=== PATIENT | female | born 1950 | race Caucasian/White ===

== ENCOUNTER → 2018-12-19 08:00 | Outpatient (CLI) | payer MEDICARE | END | disposition home or self-care (01) | LOC: D.HCCARDIO 08:00 | PROVIDERS: ATTEND Internal Medicine Cardiovascular Disease | DX: I20.9 Angina pectoris, unspecified (principal) ==

== ENCOUNTER 2018-12-27 11:26 | Outpatient (CLI) | payer MEDICARE ==
[~2018-12-27] VITALS: Ht 160 cm; Wt 63.6 kg
--- NOTE | ~2018-12-27 | HEMODYNAMI ---
PATIENT:VIC EAGLE MEDICAL RECORD: [id number] : 50 LOCATION:[facility] ADMISSION DATE: 12/27/18 Generatedon:12/27/201814:45 Patient name: VIC EAGLE Patient #: [id number] SSN: : 1950 Date of study: 12/27/2018 Page: Of Hemodynamic Procedure Report Patient Data Patient Demographics Procedure consent was obtained First Name: VIC Gender: Female Last Name: FCO : 1950 Patient #: [id number] Age: 68 year(s) Race: Unknown Additional ID: [id number] Contact details [address]: [address] [place] [address] State: [place] City: [place] Zip code: [address] Past Medical History Allergies Allergen Reaction Date Comments Reported Morphine 12/27/2018 Adhesive tape 12/27/2018 Admission Admission Data Admission Date: 12/27/2018 Admission Time: 11:26 Admit Source: Other Lab Results Lab Result Date: 12/27/2018 Lab Result Time: 0:00 Biochemistry Name Units Result Min Max BUN mg/dl 10 --(-*--)-- 7 18 Creatinine mg/dl 0.7 --(*---)-- 0.6 1.3 eGFR ml/min 90 --(*---)-- 90 120 AM eGFR ml/min 88.59236 -*(----)-- 90 120 NONAFRICAN CBC Name Units Result Min Max Hemoglobin g/dl 13.3 -*(----)-- 13.5 17.5 Procedure Procedure Types Cath Procedure Diagnostic Procedure LHC LHC w/Coronaries Procedure Description Procedure Date Procedure Date: 12/27/2018 Procedure Start Time: 14:26 Procedure End Time: 14:42 Procedure Staff Name Function Lucas Carroll MD Performing Physician Carl Choi RT Monitor Shahla Hatfield RT Scrub Mark Tomas RT Scrub Maximino Aranda RN Nurse Procedure Data Cath Procedure Fluoroscopy Diagnostic fluoroscopy Total fluoroscopy Time: 1.7 time: 1.7 min min Diagnostic fluoroscopy Total fluoroscopy dose: 265 dose: 265 mGy mGy Contrast Material Contrast Material Type Amount (ml) Isovue 370 63 Entry Location Entry Primary Successful Side Size Upsize Upsize Entry Closure Succes sful Closure Location (Fr) 1 (Fr) 2 (Fr) Remarks Device Remarks Femoral Right 5 Fr Exoseal artery Diagnostic catheters Device Type Used For End Catheter Placement MULTIPACK JL 4.0 5Fr Left Coronary catheter Angiography MULTIPACK 3DRC 5Fr Right Coronary catheter Angiography MULTIPACK Pigtail 5 Fr LV Angiography catheter Procedure Complications No complications Procedure Medications Medication Administration Route Dosage 0.9% NaCl I.V. 100 ml/hr Oxygen etCO2 Nasal cannula 2 l/min Heparin Flush Bag added to field 2 bags (1000units/500ml NS) Lidocaine 2% added to field 20 Versed I.V. 2 mg Versed I.V. 2 mg Versed I.V. 2 mg Versed I.V. 2 mg Hemodynamics Rest HGB: 13.3 (g/dl) Heart Rate: 64 (bpm) Pressure Samples Time Site Value (mmHg) Purpose Heart Use Rate(bpm) 14:39 LV 138/-5,17 EDP 81 14:40 AO 131/76(102) Pullback 78 14:40 LV 136/4,21 Pullback 78 Gradients Valve Time Site 1 Site 2 Mean SEP/DFP Peak To Heart Use (mmHg) (sec/min) Peak Rate (mmHg) (bpm) Aortic 14:40 LV AO 5 20 5 78 136/4,21 131/76(102) Calculations Valve P-P Mean Valve Index Valve Source Name Gradient Area Flow (cm2) Aortic 5 5 5 5 Snapshots Pre Cath Intra NCS Post Cath Vital Signs Time Heart Resp SPO2 etCO2 NIBP (mmHg) Rhythm Pain Sedation Rate (ipm) (%) (mmHg) Status Level (bpm) 14:10:32 63 11 99 36.8 149/93(132) NSR 0 (11) 10(A) , No pain 14:14:48 64 17 100 36.1 138/86(125) NSR 0 (11) 10(A) , No pain 14:19:02 64 18 99 35.3 124/80(96) NSR 0 (11) 10(A) , No pain 14:23:12 66 12 99 34.6 120/80(104) NSR 0 (11) 10(A) , No pain 14:27:18 71 19 99 33.8 128/84(101) NSR 0 (11) 10(A) , No pain 14:35:03 72 10 98 35.3 115/79(96) NSR 0 (11) 9(A) , No pain 14:39:06 80 10 100 36.1 126/82(113) NSR 0 (11) 9(A) , No pain 14:43:15 79 18 100 35.3 126/82(112) NSR 0 (11) 10(A) , No pain Medications Time Medication Route Dose Verified Delivered Reason Notes Eff ectiveness by by 14:08:55 0.9% NaCl I.V. 100 Maximino Maximino Per ml/hr Manoj Aranda physician RN RN 14:09:04 Oxygen etCO2 2 Maximino Maximino for low 02 Nasal l/min Lorigan Lorigan sats cannula RN RN 14:09:14 Heparin Flush added 2 Maximino Maximino used for Bag to bags Lorigan Manoj procedure (1000units/500ml field RN RN NS) 14:09:25 Lidocaine 2% added 20ml Maximino Maximino for local to vial Lorigan Lorigan anesthetic field RN RN 14:14:38 Versed I.V. 2 mg Maximino Maximino for Lorigan Lorigan sedation RN RN 14:22:33 Versed I.V. 2 mg Maximino Maximino for Lorigan Lorigan sedation RN RN 14:30:17 Versed I.V. 2 mg Maximino Maximino for Lorigan Lorigan sedation RN RN 14:33:57 Versed I.V. 2 mg Maximino Maximino for Lorigan Lorigan sedation RN wall covering installer Log Time Note 13:40:45 Maximino Aranda RN sent for patient. Start room use. 13:46:15 Admit Source: Other 13:46:43 Procedure Status Elective Heart Cath (OP). 13:46:46 Time tracking: Regular hours (M-F 7:00 - 5:00) 13:46:51 Plan of Care:Hemodynamics will remain stable., Cardiac rhythm will remain stable., Comfort level will be maintained., Respiratory function will remain adequate., Patient/ family verbilizes understanding of procedure., Procedure tolerated without complication., Recovers from procedure without complications.. 14:00:09 Patient received from Pre/Post Procedure Room to CCL 1 Alert and oriented. Tansferred to table in Supine position. 14:00:15 Signed procedure consent form obtained from patient. 14:00:16 Warm blankets applied, and kiran hugger turned on for patient comfort. 14:00:18 Correct patient and procedure confirmed by team. 14:00:19 ECG and BP/O2 sat monitors applied to patient. 14:08:55 0.9% NaCl 100 ml/hr I.V. was administered by Maximino Aranda RN; Per physician; 14:09:04 Oxygen 2 l/min etCO2 Nasal cannula was administered by Maximino Aranda RN; for low 02 sats; 14:09:14 Heparin Flush Bag (1000units/500ml NS) 2 bags added to field was administered by Maximino Aranda RN; used for procedure; 14:09:25 Lidocaine 2% 20ml vial added to field was administered by Maximino Aranda RN; for local anesthetic; 14:09:30 Vital chart was started 14:09:47 Baseline sample Acquired. 14:09:48 Baseline sample Acquired. 14:09:50 Rhythm: sinus rhythm 14:09:52 Full Disclosure recording started 14:10:09 H&P Date Dictated: 12/19/2018 Within 30 days and on chart.. 14:10:11 Pre-procedure instructions explained to patient. 14:10:11 Pre-op teaching completed and patient verbalized understanding. 14:10:13 Family in waiting room. 14:10:15 Patient NPO since Midnight. 14:10:47 Patient allergic to Morphine 14:11:03 Patient allergic to Adhesive tape 14:11:05 Is the patient allergic to Iodine/contrast media? No. 14:11:13 Is patient on blood thinner?No 14:11:15 Patient diabetic? Yes. 14:11:17 If diabetic: On Metformin? Yes 14:11:22 If on Metformin: Last Dose? 12/25/2018 14:11:24 ----Pre-sedation anethsthesia assessment.---- 14:11:26 Previous problem with sedation/anesthesia? No ? 14:11:28 Snore? No 14:11:29 Sleep apnea? No 14:11:31 Deviated septum? No 14:11:32 Opens mouth fully? Yes 14:11:34 Sticks out tongue? Yes 14:11:36 Airway obstruction? No ? 14:11:40 Dentures? Yes in tight 14:11:43 Pre procedure: right dorsailis pedis pulse 2+ Normal; easily identifiable; not easily obliterated 14:11:48 Modified Terry's test Ulnar > 7 seconds. 14:11:51 Patient pain scale 0/10 ?. 14:11:57 IV patent on arrival in left antecubital with 0.9% NaCl at [facility]. 14:13:24 Lab Result : Creatinine 0.7 mg/dl 14:13:24 Lab Result : BUN 10 mg/dl 14:13:24 Lab Result : eGFR AM 90 ml/min 14:13:24 Lab Result : eGFR NONAFRICAN 88.24121 ml/min 14:13:24 Lab Result : Hemoglobin 13.3 g/dl 14:13:28 Lab results completed and on chart. 14:13:31 Right groin area was prepped with chlora-prep and draped in sterile fashion 14:13:32 Alarms reviewed by R. N. 14:13:32 Sharps counted by scrub and verified by R.N. 14:13:33 Physician arrived 14:13:34 --------ALL STOP TIME OUT------ 14:13:34 Final Timeout: patient, procedure, and site verified with staff and physician. All members of the team are in agreement. 14:13:36 Right groin site verified by team. 14:13:41 Fire Safety Assessment: A--An alcohol-based skin anteseptic being used preoperatively., C--Open oxygen or nitrous oxide is being used., D--An ESU, laser, or fiber-optic light is being used. 14:13:43 Physical assessment completed. ASA score P 2 - A patient with mild systemic disease as per Lucas Carroll MD. 14:13:51 2) 60-89 Mildly reduced kidney function, and other findings (as for stage 1) point to kidney disease. 14:14:11 Maximum allowable contrast dose (3.7 X eGFR X 0.75)244 ml. 14:14:15 Sedation plan: IV Moderate Sedation Medication:Versed, Fentanyl 14:14:38 Versed 2 mg I.V. was administered by Maximino Lorigan RN; for sedation; 14:18:37 Use device set Femoral Dx 14:18:39 ACIST Syringe (92621) opened to sterile field. 14:18:39 Bag Decanter (2002S) opened to sterile field. 14:18:40 Medline Cath Pack ([id number]) opened to sterile field. 14:18:41 ACIST Hand Control (67612) opened to sterile field. 14:18:41 ACIST Manifold (51379) opened to sterile field. 14:18:42 DIAGNOSTIC Multipack 5Fr catheter set ([id number]) opened to sterile field. 14:18:43 Tegaderm 4 x 4 (1626W) opened to sterile field. 14:18:45 SHEATH 5FR Lakeside (JUC256) opened to sterile field. 14:18:45 EMERALD Guide Wire (739-509) opened to sterile field. 14:22:33 Versed 2 mg I.V. was administered by Maximino Aranda RN; for sedation; 14:25:58 Procedure started. 14:26:24 Local anesthetic to right femoral artery with Lidocaine 2% by Lucas Carroll MD.INITIAL ACCESS ONLY 14:26:33 A 5 Fr sheath was inserted into the Right Femoral artery 14:27:05 Vital chart was stopped 14:30:17 Versed 2 mg I.V. was administered by Maximino Aranda RN; for sedation; 14:32:39 Zero performed for pressure channel P1 14:33:33 A MULTIPACK JL 4.0 5Fr catheter was advanced over the wire and used for Left Coronary Angiography. 14:33:57 Versed 2 mg I.V. was administered by Maixmino Aranda RN; for sedation; 14:34:00 Vital chart was started 14:34:59 LCA angiography performed. 14:35:31 Catheter removed. 14:36:29 A MULTIPACK 3DRC 5Fr catheter was advanced over the wire and used for Right Coronary Angiography. 14:36:34 RCA angiography performed. 14:39:19 ACCDominant side:Co-Dominant 14:39:22 Catheter removed. 14:39:29 A MULTIPACK Pigtail 5 Fr catheter was advanced over the wire and used for LV Angiography. 14:39:35 LV angiography performed. 14:39:43 LV gram done using WU 14:40:03 EF : 55 % 14:40:15 Catheter removed. 14:40:23 Sheath removed intact; hemostasis achieved with Exoseal to the Right Femoral artery. 14:40:29 EXOSEAL 5Fr (EX500) opened to sterile field. 14:40:32 Procedure ended.(Physican Out) 14:41:17 Fluoroscopy time 01.70 minutes. 14:41:22 Flurop Dose total: 265 14:41:22 Fluoroscopy dose: 265 mGy 14:41:39 Contrast amount:Isovue 370 63ml. 14:41:40 Sharps counted by scrub and verified by R.N. 14:41:43 Insertion/operative site no bleeding no hematoma. 14:41:46 Post-op/insertion site Right Femoral artery dressed using a 4 x 4 and Tegaderm. 14:41:49 Post right femoral artery:stable 14:41:51 Post Procedure Pulses reassessed and unchanged 14:41:53 Post procedure: right dorsailis pedis pulse 1+ Palpable, but thready & weak; easily obliterated. 14:41:57 Post-procedure physical assessment completed. ASA score P 2 - A patient with mild systemic disease as per Lucas Carroll MD. 14:42:00 Post procedure rhythm: sinus rhythm 14:42:01 Post procedure instruction explained to patient.Patient verbalizes understanding. 14:42:07 Procedure and supply charges have been captured, reviewed, submitted and are correct. 14:42:23 Procedure Complication : No complications 14:42:26 See physician's report for complete and final results. 14:42:28 Report given to Pre/Post Procedure Room. 14:42:31 Patient transfered to Pre/Post Procedure Room with Stretcher. 14:42:33 Procedure ended. 14:42:33 Full Disclosure recording stopped 14:42:37 End room use (Document Last) 14:45:15 Vital chart was stopped Device Usage Item Name Manufacture Quantity Catalog Hospital Part Current Minimal L ot# / Number Charge Number Stock Stock Serial# Code ACIST Acist 1 48635 327804 637083 [id number] 20 Syringe Onavo (67772) Systems Inc Bag Microtek 1 470327 41255 246247 5 Decanter Medical Inc. () Medline Medline 1 [id number] 755460 41290 644902 5 Cath Pack ([id number]) ACIST Hand Acist 1 65250 940413 196150 393370 5 Control Medical (94113) Systems Inc ACIST Acist 1 49732 739776 865411 116480 5 Manifold Medical (29748) Systems Inc DIAGNOSTIC Cardinal 1 GA1080 206291 11235 332919 30 Multipack Health 5Fr catheter set (BI1531) Tegaderm 4 3M 1 1626W 218098 525049 681113 5 x 4 (1626W) SHEATH 5FR Terumo 1 UNY227 686243 579203 467230 5 Lakeside (MTO675) EMERALD Cardinal 1 502-114 631382 529331 437256 5 Guide Wire Health (502-820) MULTIPACK Cardinal 1 099496 5 JL 4.0 5Fr Health catheter MULTIPACK Cardinal 1 776926 5 3DRC 5Fr Health catheter MULTIPACK Cardinal 1 386577 5 Pigtail 5 Health Fr catheter EXOSEAL 5Fr Cardinal 1 EX500 932450 483271 788537 10 (EX500) Health Signature Audit Zullinger Stage Time Signature Unsigned Intra-Procedure 12/27/2018 Carl Choi RT(R) 2:45:12 PM Signatures Performing Physician : Signature : Lucas Carroll MD Date : Time : Monitor : Carl Choi RT Signature : Date : Time : Nurse : Maximino Aranda Signature : RN Date : Time : [facility] [address] [place] [address]
[2018-12-27] MEDS ORDERED: KLONOPIN1 MG PO (11:48)
[2018-12-27] MEDS ORDERED: ZESTRIL10 MG PO (11:49)
[2018-12-27] MEDS ORDERED: HYDROCODON-ACE1 EA10 PO (11:49)
[2018-12-27] MEDS ORDERED: LIPITOR20 MG PO (11:50)
[2018-12-27] MEDS ORDERED: ALENDRONAT70 MG/75 M PO (11:50)
[2018-12-27] MEDS ORDERED: GLUCOPHAGE500 MG PO (11:50)
[2018-12-27 12:01] VITALS: BP 140/81; Ht 160 cm; Wt 63.6 kg
[2018-12-27 12:10] LABS: BASOPHILS 0.2 % (0-2); EOSINOPHILS 1.8 % (0-7); HEMATOCRIT 39.2 % (36.0-48.0); HEMOGLOBIN 13.3 g/dL (12-16); IMMATURE GRANULOCYTES 0.2 % (0-5); LYMPHOCYTES 41.5 % (15-50); MCH 28.8 pg (26.0-34.0); MCHC 33.9 g/dL (31.0-37.0); MCV 84.8 fL (80.0-100.0); MEAN PLATELET VOLUME 10.6 fL (7.4-10.4); MONOCYTES 5.2 % (2-11); NEUTROPHILS 51.1 % (40-80); PLATELET COUNT 196 10x3/uL (130-400); RBC 4.62 10x6/uL (4.00-5.40); RDW 14.9 % (11.5-14.5); WBC 6.6 10x3/uL (4.8-10.8)
[2018-12-27 12:18] LABS: CALC OSMOLALITY 280 mosm/kg (275-300); CALCIUM 8.9 mg/dL (8.5-10.1); CHLORIDE - SERUM 105 mmol/L (98-107); CREATININE - SERUM 0.7 mg/dL (0.6-1.3); GLUCOSE 113 mg/dL (74-106); POTASSIUM - SERUM 3.5 mmol/L (3.5-5.1); SODIUM 141 mmol/L (136-145); UREA NITROGEN 10 mg/dL (7-18); eGFR NON AFRICAN AMERICAN 88 mL/min (90-120)
--- NOTE | 2018-12-27 14:55 | NUR ---
PATIENT ARRIVED TO ROOM 3, PLACED ON CM. VSS ON ROOM AIR. RIGHT GROIN DRESSING IS CDI, NO S/S OF BLEEDING OR HEMATOMA.
--- NOTE | 2018-12-27 15:10 | NUR ---
PATIENT AWAKE, VOIDED PER BEDPAN WITHOUT DIFFICULTY. VSS ON ROOM AIR. RIGHT GROIN DRESSING IS CDI, NO S/S OF BLEEDING OR HEMATOMA. NO C/O PAIN, NUMBNESS, OR TINGLING. NO N/V.
--- NOTE | 2018-12-27 15:40 | NUR ---
PATIENT RESTING, VSS ON ROOM AIR. RIGHT GROIN DRESSING IS CDI, NO S/S OF BLEEDING OR HEMATOMA. NO C/O PAIN, NUMBNESS, OR TINGLING. NO N/V.
--- NOTE | 2018-12-27 16:00 | NUR ---
HEAD OF BED RAISED TO 30 DEGREES. RIGHT GROIN DRESSING IS CDI, NO S/S OF BLEEDING OR HEMATOMA. NO C/O PAIN, UMBNESS, OR TINGLING. NO N/V, TOLERATING PO FLUIDS.
--- NOTE | 2018-12-27 16:20 | NUR ---
PATIENT GIVEN ACETAMINOPHEN ORDERED FOR CHRONIC PAIN IN LEFT SHOULDER. HEAD OF BED ELEVATED TO 60 DEGREES. RIGHT GROIN DRESSING IS CDI, NO S/S OF BLEEDING OR HEMATOMA. TOLERATING PO FLUIDS AND FOOD, NO N/V.
--- NOTE | 2018-12-27 16:50 | NUR ---
IV REMOVED. RIGHT GROIN DRESSING IS CDI, NO S/S OF BLEEDING OR HEMATOMA. PATIENT STATES THAT SHOULDER PAIN IS "BETTER". VSS ON ROOM AIR. NO N/V.
--- NOTE | 2018-12-27 16:50 | NUR ---
WRITTEN AND VERBAL DISCHARGE INSTRUCTIONS GIVEN TO PATIENT AND SPOUSE, BOTH VOICE UNDERSTANDING.
--- NOTE | 2018-12-27 17:05 | NUR ---
PATIENT TRANSPORTED VIA WHEELCHAIR TO CAR WITH SPOUSE DRIVING, ALL BELONGINGS WITH PATIENT.
== END 2018-12-27 17:05 ==
LOC: D.CATH 11:26
PROVIDERS: ATTEND Internal Medicine Cardiovascular Disease
DX: I20.9 Angina pectoris, unspecified (principal); Z01.812 Encounter for preprocedural laboratory examination